=== PATIENT | female | born 1955 | race American Indian/Alaskan Native ===

== ENCOUNTER 2016-05-27 10:01 | Outpatient (CLI) | payer BC ==
[2016-05-27 11:33] LABS: Blood Urea Nitrogen 17 mg/dL (7-17)
--- NOTE | 2016-05-27 14:38 | Cat Scan Report ---
CT CHEST, ABDOMEN AND PELVIS WITH CONTRAST INDICATION: Malignant neoplasm of central portion of right female breast. COMPARISON: 01/12/2016. FINDINGS: Chest, abdomen and pelvis CT performed following oral contrast and intravenous administration of 100 cc of Omnipaque 300. CHEST: Though in part limited due to breathing/motion artifact, heart size and great vessels are grossly stable. Cardiac silhouette again slightly exaggerated due to prominent pericardial fat-pad towards the base. Mild atherosclerotic calcifications. No size significant adenopathy. Patent airway. Normal thyroid. Right upper anterior chest wall port tip along the distal SVC. Unremarkable lungs. Nonspecific distal esophageal wall thickening, not excluded for gastroesophageal reflux and/or hiatal hernia, amongst others. ABDOMEN: Approximately 1.3 cm peripheral right hepatic hypodensity again noted. No other definite suspicious hepatic lesions. However, subtle increased prominence/thickening along the right hemidiaphragm anteriorly as on axial series 2, images 129-134 is more pronounced since the prior exam. Approximately 2 cm left lower lobe renal cortical cyst posteriorly again noted as also small bilateral renal parapelvic cysts. Otherwise unremarkable liver, spleen, gallbladder, pancreas, adrenals, nonaneurysmal abdominal aorta with few atherosclerotic calcifications and IVC. No ascites or size significant adenopathy. Opacified GI tract nonobstructive and within normal limits. Normal appendix. Mild colonic stool. PELVIS: Streak artifact due to patient's body habitus again limits assessment, though with grossly unremarkable uterus, adnexa, urinary bladder and the rectosigmoid. Few pelvic phleboliths. No free fluid or significant adenopathy. Numerous bony metastases, predominantly involving multiple spinal levels again noted with largest lesions measuring up to approximately 2 cm involving T7 and T10 while approximately 1 cm involving L1 and L2. Lower lumbar facet arthropathy also noted. CONCLUSION: 1. Single peripheral right hepatic hypodense metastatic lesion appears stable. Additionally, nonspecific soft tissue prominence/thickening along the right hemidiaphragm anteriorly also now not excluded metastatic in the given setting. Follow up on subsequent exams as well. 2. Numerous skeletal metastases also appear stable. 3. Various other incidental findings, as above. Thank you for the opportunity to participate in this patient's care.
--- NOTE | 2016-05-27 15:30 | Nuclear Medicine Report ---
BONE SCAN: History: Right breast cancer. Multiple areas of abnormal uptake have developed since 01/12/16 exam. There is focal uptake throughout the thoracic and lumbar spine with L2 being the most affected level. There are multiple focal areas of uptake in the pelvis. Bilateral rib lesions are also identified. No calvarial lesions. IMPRESSION: Multiple abnormal areas of increased radiotracer uptake have developed throughout the axial skeleton consistent with metastatic disease.
== END 2016-05-27 10:02 | disposition home or self-care (01) ==
LOC: NM 10:01
PROVIDERS: ATTEND Internal Medicine Hematology & Oncology
DX: C79.51 Secondary malignant neoplasm of bone (principal); C50.111 Malignant neoplasm of central portion of right female breast; I70.0 Atherosclerosis of aorta; N28.1 Cyst of kidney, acquired; I87.8 Other specified disorders of veins; M12.88 Other specific arthropathies, not elsewhere classified, other specified site
CPT/HCPCS: 36415; 71260; 74177; 78306; 82565; 84520; A9503; Q9967

== ENCOUNTER 2016-09-02 09:05 | Outpatient (CLI) | payer BC ==
[2016-09-02 10:08] LABS: Blood Urea Nitrogen 13 mg/dL (7-17)
[2016-09-02] MEDS ORDERED: NACL ONE (11:55)
--- NOTE | 2016-09-02 12:54 | Cat Scan Report ---
CT of the abdomen and pelvis with and without IV contrast and with oral contrast History: Breast cancer, followup study. Findings: Comparison is made to the previous recent study performed on May 27, 2016. The hypodense mass in the lateral aspect of the right lobe of the liver has increased in size and now measures 1.9 x 2.6 cm. No new liver lesions are seen. The spleen, pancreas, and gallbladder are unremarkable. A small lower pole left renal cyst is stable.. The adrenal glands are normal. There are no pelvic masses or abnormal fluid collections. No mesenteric inflammation is seen. A small umbilical hernia containing fat is noted. Bony metastatic lesions are stable. Impression: 1. Mild increase in size of the right hepatic metastatic lesion, but no new metastatic lesions are identified. 2. Stable bony metastatic lesions. 3. Benign left renal cyst.
--- NOTE | 2016-09-02 15:01 | Nuclear Medicine Report ---
Nuclear medicine bone scan. History: Breast cancer, followup study. Findings: Comparison is made to the previous study on May 27, 2016. Numerous areas of increased activity in the dorsal and lumbar spine, and bony pelvis, and the ribs are stable compared to the previous study. No new bony lesions are identified. Bilateral renal activity is present. Impression: Multiple metastatic lesions, but no interval change since April of 2016.
--- NOTE | 2016-09-02 16:46 | Cat Scan Report ---
CT of the chest without contrast. History: Breast cancer, followup study. Findings: Comparison is made to previous study on May 28, 2016. In the medial aspect of the right lower lobe, there is an area of airspace disease/consolidation measuring approximately 5 cm in maximum dimension. No underlying central obstructing mass is seen. There is no mediastinal or hilar adenopathy. Otherwise, the lungs are clear. No pulmonary nodules are seen. There is no pleural fluid. Multiple stable metastatic lesions in the dorsal spine are present. There is no evidence of compression fracture. Impression: Right lower lobe infiltrate, probably representing inflammatory disease. Stable bony metastatic lesions are seen.
== END 2016-09-02 09:06 | disposition home or self-care (01) ==
LOC: NM 09:05
PROVIDERS: ATTEND Internal Medicine Hematology & Oncology
DX: C50.111 Malignant neoplasm of central portion of right female breast (principal); R91.8 Other nonspecific abnormal finding of lung field; M89.9 Disorder of bone, unspecified; N28.1 Cyst of kidney, acquired; K42.9 Umbilical hernia without obstruction or gangrene; M54.9 Dorsalgia, unspecified; I10 Essential (primary) hypertension; E78.00 Pure hypercholesterolemia, unspecified; F41.9 Anxiety disorder, unspecified
CPT/HCPCS: 36415; 71260; 74178; 78306; 82565; 84520; A9503; Q9967

== ENCOUNTER 2017-05-09 10:11 | Outpatient (CLI) | payer BC ==
[2017-05-09 11:17] LABS: Blood Urea Nitrogen 17 mg/dL (7-17)
--- NOTE | 2017-05-09 13:14 | Cat Scan Report ---
CT CHEST WITH CONTRAST: HISTORY: Malignant neoplasm of right breast. COMPARISON: 12/30/16. TECHNIQUE: Helical CT in 1.25mm intervals following IV contrast. Sagittal and coronal reformatted images. FINDINGS: Surgical changes in the superior right breast are again noted. No recurrent mass or abnormality in this area. Thyroid gland: Normal. Tracheobronchial tree: Normal. Esophagus: Normal. Heart: Normal. Pericardium: Normal. Mediastinum: Normal. No mediastinal adenopathy is detected. Lung Gregorio: Normal. No evidence for pulmonary nodule, mass or infiltrate Pleural Spaces: Normal. Musculoskeletal: Numerous sclerotic bony lesions throughout the thoracic spine and to a lesser extent the sternum are identified. No significant change since the previous exam is appreciated. No pathologic fracture. IMPRESSION: Stable findings since 12/30/16. Multiple sclerotic bony lesions are identified throughout the spine and sternum which appear stable. No thoracic adenopathy or lung mass has developed.
--- NOTE | 2017-05-09 13:19 | Cat Scan Report ---
CT ABDOMEN PELVIS WITH CONTRAST: HISTORY: Malignant neoplasm of right breast. COMPARISON: 12/30/16. TECHNIQUE: Helical CT in 1.25mm intervals following IV contrast. Sagittal and coronal reconstructions. FINDINGS: Liver: An ill-defined right hepatic lobe mass has increased from approximately 2.5 cm in greatest diameter to 5.3 x 3.6 cm in axial plane. Areas of central necrosis are suspected within this mass on today's exam. No additional liver lesions are appreciated. Biliary system: Normal. Pancreas: Normal. Spleen: Normal. Kidneys/ureters/bladder: Normal. 2.3 cm simple left renal cyst is unchanged. Adrenal glands: Normal. Aorta: Normal. Intestines: Normal. Appendix: Not confidently identified, correlate with surgical history. Pelvic viscera: Normal. Ascites: None. Adenopathy: None. Musculoskeletal: Multiple sclerotic bony lesions throughout the lumbar spine and pelvis appear stable in size and number. No new bony lesion or pathologic fracture is detected. IMPRESSION: Mild progression of disease is demonstrated in the abdomen. A right hepatic lobe mass has increased N. size as outlined above. Numerous sclerotic bony lesions appear unchanged. No new areas of disease are appreciated.
--- NOTE | 2017-05-10 08:19 | Nuclear Medicine Report ---
NUCLEAR MEDICINE BONE SCAN WHOLE BODY History: Restaging of breast cancer. Technique: Anterior and posterior whole body images and coned-down images of the lower chest and abdomen were obtained 3 hours after injection of 25.0 mCi of technetium 99m MDP. Comparison: Bone scan dated 12/30/16. CT chest abdomen and pelvis with contrast performed the same day. Findings: Multiple focal areas of abnormal bony uptake are again identified and consistent with metastatic disease to the bones. Subjectively, the intensity of radiotracer uptake appears slightly increased since the previous exam. Focal areas of uptake are identified throughout the thoracic and lumbar spine with uptake the most intense at the L2 level. Bilateral rib lesions are also identified which appear slightly increased. There are new focal areas of uptake in posterior left ribs 2-5. There is focal uptake in the superior sacrum, right posterior iliac bone and right ischium. Focal uptake in the inferior scapula bilaterally. No calvarial lesions are identified. IMPRESSION: Perhaps minimal progression of disease as demonstrated since 12/30/16 exam. There appear to be a few new left rib lesions as described. Intensity of radiotracer uptake appears slightly increased on today's exam as well which is a subjective finding.
== END 2017-05-09 10:12 | disposition home or self-care (01) ==
LOC: NM 10:11
PROVIDERS: ATTEND Internal Medicine Hematology & Oncology
DX: C50.111 Malignant neoplasm of central portion of right female breast (principal); N28.1 Cyst of kidney, acquired; M89.9 Disorder of bone, unspecified
CPT/HCPCS: 36415; 71260; 74177; 78306; 82565; 84520; A9503; Q9967

== ENCOUNTER 2017-08-09 10:00 | Outpatient (CLI) | payer BC ==
[2017-08-09 11:25] LABS: Blood Urea Nitrogen 12 mg/dL (7-17)
--- NOTE | 2017-08-09 15:10 | Nuclear Medicine Report ---
NUCLEAR MEDICINE WHOLE-BODY BONE SCAN: 08/09/17 CLINICAL: Followup breast cancer metastases. COMPARISON: 05/09/17 ten 12/30/16 TECHNIQUE: 25 millicuries technetium 99m MDP was injected intravenously and whole body scans were obtained at 3 hours. FINDINGS: Interval improvement with decreased number of lesions and decreased uptake in lesions compared to last exam. 2 small foci of uptake in the sternum and several abnormal foci of uptake in bilateral ribs. Activity in the L2 vertebral body has returned to normal. Asymmetric uptake in the L5 vertebral body is more prominent on this scan because adjacent activity is less than but the L5 uptake is probably unchanged compared to the last exam. Persistent but decreased abnormal uptake in the right pelvis. IMPRESSION: A positive response to therapy with resolution of some lesions and decreased uptake in some remaining lesions.
--- NOTE | 2017-08-09 15:50 | Cat Scan Report ---
CT CHEST, ABDOMEN AND PELVIS WITH CONTRAST: 08/09/17 10:00:00 CLINICAL: Breast cancer restaging. COMPARISON: 05/09/17 TECHNIQUE: Volumetric acquisition and 1.25 millimeter scan reconstructions after the uneventful intravenous injection of 100 cc of Omnipaque 300. Consent was obtained prior to the administration of the contrast. Oral contrast was also given. FINDINGS: Chest: The lungs are clear. No pulmonary nodule or mass. Normal aorta, heart and pulmonary arteries. Normal esophagus and trachea. No mediastinal or hilar lymphadenopathy.No axillary or supraclavicular lymphadenopathy. Abdomen: Normal liver size, contour and overall density. The previously described right hepatic heterogeneous hypodense mass has increased in size and measures 6.5 x 5.0 cm compared to 5.3 x 3.6 cm on the last exam. No other liver lesions identified. The gallbladder and bile ducts are normal. Normal stomach, duodenum, pancreas and spleen. Normal adrenal glands. Small bilateral benign renal cysts. Physiologic distention of the renal collecting systems and ureters. A stable to millimeter nonobstructive left lower pole renal calculus. Normal aorta and inferior vena cava. No mass or lymphadenopathy.No ascites.Normal small bowel. Normal ascending and transverse colon. Mild diverticulosis of the descending colon but no diverticulitis. An appendix is not identified. Pelvis: Normal urinary bladder uterus and rectum.Normal ovaries. No adnexal mass or free fluid. Normal sigmoid colon. Bone windows demonstrate stable extensive predominantly sclerotic lesions involving the sternum, right clavicle, thoracic spine, lumbar spine, sacrum and pelvic bones. IMPRESSION:1. A slightly larger right hepatic metastasis. 2. No evidence of pulmonary or chaka metastasis. 3. Stable skeletal metastasis.
== END 2017-08-09 10:01 | disposition home or self-care (01) ==
LOC: NM 10:00
PROVIDERS: ATTEND Internal Medicine Hematology & Oncology
DX: C50.111 Malignant neoplasm of central portion of right female breast (principal); N28.1 Cyst of kidney, acquired; C78.7 Secondary malignant neoplasm of liver and intrahepatic bile duct; C79.51 Secondary malignant neoplasm of bone; N20.0 Calculus of kidney; K57.30 Diverticulosis of large intestine without perforation or abscess without bleeding; I10 Essential (primary) hypertension; E78.00 Pure hypercholesterolemia, unspecified; E07.9 Disorder of thyroid, unspecified; F41.9 Anxiety disorder, unspecified; Z82.49 Family history of ischemic heart disease and other diseases of the circulatory system
CPT/HCPCS: 36415; 71260; 74177; 78306; 82565; 84520; A9503; Q9967

== ENCOUNTER → 2017-10-13 | Outpatient (CLI) | payer BC ==
[2017-10-13 13:01] LABS: Blood Urea Nitrogen 14 mg/dL (7-17)
--- NOTE | 2017-10-14 13:56 | Cat Scan Report ---
CT CHEST, ABDOMEN AND PELVIS WITH CONTRAST: 10/13/17 11:30:00 CLINICAL: Right breast cancer followup. COMPARISON: 08/09/17 TECHNIQUE: Volumetric acquisition and 1.25 millimeter scan reconstructions after the uneventful intravenous injection of 100 cc of Omnipaque 300. Consent was obtained prior to the administration of the contrast. Oral contrast was also given. FINDINGS: Chest: A new moderate-sized left pleural effusion and a new 6 mm left lower lobe lung nodule at the fissure. A few tiny 1-2 mm nodules of the left lung fissure. No mediastinal lymphadenopathy. A 1 cm right hilar lymph node is new compared to the last exam. No axillary or supraclavicular lymphadenopathy. Normal heart, aorta and pulmonary vasculature. Normal thyroid, trachea and esophagus. Abdomen: The liver is enlarged with too numerous to count diffuse hypodense masses involving the right lobe and the left lobe. The largest mass is in the right lobe and measures 6.6 x 5.3 cm. The hepatic veins and portal veins are intact with no evidence of thrombus. Mild right perihepatic ascites. Normal gallbladder and bile ducts. The gallbladder is partially contracted with no stones. Normal stomach, duodenum, pancreas and spleen. Incomplete rotation of the right kidney and otherwise normal right kidney. A 2.6 cm left lower pole renal cyst and a stable 1 mm left lower pole nonobstructing calculus. The renal collecting systems and ureters are normal. Stable mild enlargement of the left adrenal gland with no adrenal mass. Normal aorta and inferior vena cava. No lymphadenopathy.No ascites.Normal small bowel. Normal ascending, transverse and descending colon. Normal appendix. Pelvis: Normal urinary bladder and rectum. Normal uterus and ovaries . Moderate pelvic ascites. Bone windows demonstrate stable extensive predominantly sclerotic lesions involving the sternum, right clavicle, thoracic spine, lumbar spine, sacrum and pelvic bones. IMPRESSION:1. A new 6 mm left pulmonary metastasis and a new left pleural effusion. 2. Increased size and number of diffuse hepatic metastases. 3. Stable skeletal metastasis.
== END | disposition home or self-care (01) ==
LOC: CT 11:30
PROVIDERS: ATTEND Internal Medicine Hematology & Oncology
DX: C50.111 Malignant neoplasm of central portion of right female breast (principal); R18.8 Other ascites; J90 Pleural effusion, not elsewhere classified; R91.1 Solitary pulmonary nodule; C79.51 Secondary malignant neoplasm of bone; E78.00 Pure hypercholesterolemia, unspecified; I10 Essential (primary) hypertension; Z82.49 Family history of ischemic heart disease and other diseases of the circulatory system; Z80.3 Family history of malignant neoplasm of breast
CPT/HCPCS: 36415; 71260; 74177; 82565; 84520; Q9967